=== PATIENT | female | born 1940 | race Caucasian/White ===

== ENCOUNTER 2023-01-06 07:30 | Outpatient (CLI) | payer MEDICARE, BC, SELFPAY | END 2023-01-06 07:31 | disposition home or self-care (01) | LOC: NFLDREF 12:16 | PROVIDERS: PCP Family Medicine; Referring Provider Family Medicine; Visit Provider Family Medicine | DX: I10 Essential (primary) hypertension (principal); E78.5 Hyperlipidemia, unspecified; E55.9 Vitamin D deficiency, unspecified; E66.9 Obesity, unspecified; Z13.9 Encounter for screening, unspecified | CPT/HCPCS: 80053; 80061; 82306 ==

== ENCOUNTER 2023-02-17 09:08 | Outpatient (CLI) | payer MEDICARE, BC, SELFPAY ==
--- NOTE | 2023-02-17 09:15 | CRLHL7_ITS ---
For Patients: As a result of the Century Cures Act, medical imaging exams and procedure reports are released immediately into your electronic medical record. You may view this report before your referring provider. If you have questions, please contact your health care provider. BILATERAL SCREENING MAMMOGRAM WITH COMPUTER-AIDED DETECTION AND TOMOSYNTHESIS TECHNIQUE: CC and MLO views were obtained. These mammographic images have been obtained using full-field digital technique. These mammographic images were interpreted with the benefit of computer-aided detection. Breast Tomosynthesis was used in this interpretation. COMPARISON FILM: 10/07/21, 09/17/20, 05/29/19. FINDINGS: The breasts are heterogeneously dense, which may obscure small masses IMPRESSION: There is no radiographic evidence for malignancy. ASSESSMENT: BI-RADS Category 1: Negative RECOMMENDATION: Routine screening mammogram in 1 year. A lay language report of this examination will be provided to the patient. Neel Rizvi M.D. Diagnostic Radiologist [email or web address] Transcribed: 3:43 p.[email or web address] hale/Dictated by: Neel Rizvi MD @ 02/17/2023 1:38:00 PM (Electronically Signed)
== END 2023-02-17 09:09 | disposition home or self-care (01) ==
LOC: MAMMO 09:09
PROVIDERS: PCP Family Medicine; Visit Provider Family Medicine
DX: Z12.31 Encounter for screening mammogram for malignant neoplasm of breast (principal); R92.2 Inconclusive mammogram
CPT/HCPCS: 77063; 77067

== ENCOUNTER 2023-04-29 09:16 | Emergency (ER) | payer MEDICARE, BC, SELFPAY ==
[2023-04-29 09:22] VITALS: BP 172/83; PULSE 115; RESP 14; TEMP 36.2; O2SAT 99; BMI 29.4
--- NOTE | 2023-04-29 09:39 | ED.NURSE ---
Dr. Childers notified of symptoms immediately after triage. No further orders received.
[2023-04-29 10:12] VITALS: BP 162/95; PULSE 99; RESP 18; O2SAT 100
--- NOTE | 2023-04-29 10:22 | ED.GENADULT ---
HPI - General Adult General Chief complaint: Unspecified Complaint, Adult Stated complaint: Low BP Time Seen by Provider: 04/29/23 09:58 History of Present Illness HPI narrative: This 83-year-old female comes in with many nonspecific complaints and states that she just feels off. 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 She states that this may be from anxiety. She normally takes blood pressure medicines but states that her blood pressure was low this morning when checked at home. She reports a reading of 105 for systolic value. She states is normally in the 120s. She did not take her blood pressure medicine this morning and arrives here with elevated blood pressure at around 160-170. She states that she feels shaky sometimes and has had some heartburn symptoms. She reports some stiffness in her legs and has some jerks that occur mostly at night which sound like restless leg syndrome. She describes some vision changes which she has had checked out by her eye doctor. She does not report any fever, shortness of breath, or pain. She wonders if her ears have accumulation of cerumen and states that she feels some symptoms related to that. Related Data Home Medications Medication Instructions Recorded Confirmed aspirin 81 mg tablet,delayed 81 mg PO QDAY 12/04/22 04/29/23 release (Adult Aspirin Regimen) latanoprost 0.005 % eye drops 1 drp ophthalmic (eye) HS 12/04/22 04/29/23 Previous Rx's Medication Instructions Recorded atorvastatin 20 mg tablet 20 mg PO DAILY #90 tabs 01/08/23 losartan 50 mg tablet 50 mg PO DAILY #90 tabs 01/08/23 Allergies Allergy/AdvReac Type Severity Reaction Status Date / Time amlodipine Allergy Severe rash and Verified 01/08/23 09:27 flushing Sulfa (Sulfonamide Allergy Verified 01/08/23 09:27 Antibiotics) Review of Systems Status of ROS: Reports: 10 or more systems reviewed and unremarkable except as noted in History and below Narrative: Constitutional: No fevers, no weight gain or loss. Eyes: No discharge. HENT: No congestion, no sore throat, no ear pain. Cardiovascular: No chest pain, no palpitations. Respiratory: No shortness of breath, no wheezes, no cough. Gastrointestinal: No abdominal pain, no vomiting, no diarrhea. Genitourinary: No dysuria, no hematuria. Musculoskeletal: Normal range of motion. Skin: No rashes, no pruritis. Neurological: No dizziness, sensory change, speech change. Endo/Heme/Allergies: No bruising or bleeding. No polydipsia. Pysch: no suicidality . She does report some anxiety symptoms and repeatedly states that her unexpectedly several months ago. All other systems reviewed and are negative. 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 with pain (2018) ?I83.819 - Varicose veins of unspecified lower extremity with pain (ICD-10) Cardiac function test performed (07/2019) Obesity (BMI 30.0-34.9) ?E66.9 - Obesity, unspecified (ICD-10) Vitamin D deficiency ?E55.9 - Vitamin D deficiency, unspecified (ICD-10) Dyslipidemia ?E78.5 - Hyperlipidemia, unspecified (ICD-10) Rosacea (04/24/09) ?L71.9 - Rosacea, unspecified (ICD-10) History of migraine headaches ?Z86.69 - Personal history of other diseases of the nervous system and sense organs (ICD-10) Surgical History (Updated 01/07/23 @ 16:08 by Asa Kwon) History of third molar tooth extraction (1959) ?K08.409 - Partial loss of teeth, unspecified cause, unspecified class (ICD-10) Family History (Updated 01/08/23 @ 06:55 by Kelly Pena MD) Brother Hx of CABG, Onset Age: 65 Paternal Grandmother Diabetes Family/Other Diabetes Multiple sclerosis Mother Stroke Melanoma Brother Hx of CABG, Onset Age: 65 Social History (Updated 01/08/23 @ 13:14 by Amber Montes ~ [facility]) Narrative: , retired teacher, 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 nonsmoker rarely consumes alcohol What is your current living situation?: I presently have a place to live Problems where you live: mold Problems where you live details: plants/paulson In the past 12 months, utilities in danger of being shut off: no In past 12 months, lack of transportation kept you from medical appts, meetings, work, or getting things needed for daily living: no In the past 12 mos, have been you worried that your food would run out before you had money to buy more?: never true In the past 12 mos, the food you bought just didn't last and you didn't have money to buy more?: never true Smoking Status: Never smoker Non-prescribed substance use: denies use How often does anyone, including family, friends and others, physically hurt you: never How often does anyone, including family, friends and others, insult or talk down to you: never How often does anyone, including family, friends and others, threaten you with harm: never How often does anyone, including family, friends and others, scream or curse at you: never Little interest or pleasure in doing things: not at all Feeling down, depressed, or hopeless: not at all Exam Narrative: Exam Narrative: Constitutional: Well-developed, well-nourished, no acute distress. HEENT: Normocephalic, atraumatic. Tympanic membranes are not visualized bilaterally due to accumulation of cerumen. Neck: Normal range of motion. Nontender. Supple. Heart: Regular. No murmurs. Normal rate. Intact distal pulses. Lungs: Clear to auscultation. No chest discomfort. No wheezes, rhonchi, or rales. Abdomen: Normal bowel sounds. Nontender. No rebound tenderness. Genitalia: Deferred. Back: No midline tenderness. Normal range of motion. Extremities: Normal range of motion. No injury. Skin: Intact. No rash. Warm. No erythema or pallor. Neurologic: No altered sensation. No weakness. Alert and oriented. Psychiatric: No suicidality. No anxiety or depression. No insomnia. Nursing notes and vitals signs are reviewed. Const: Vital Signs, click to edit/add: Vital Signs - 24 hr 04/29/23 09:22 04/29/23 10:12 Temperature 97.1 F L Pulse Rate 99 Pulse Rate [Pulse Oximeter] 115 H Respiratory Rate 14 18 Blood Pressure 162/95 H Blood Pressure [Ri ght Upper Arm] 172/83 H Pulse Oximetry 99 100 Oxygen Delivery Me thod Room Air Course Vital Signs Vital signs: Initial Vital Signs Temperature 97.1 F L 04/29/23 09:22 Temperature Source Temporal Artery Scan 04/29/23 09:22 Pulse Rate 115 H 04/29/23 09:22 Pulse Rhythm Regular 04/29/23 09:22 Respiratory Rate 14 04/29/23 09:22 Blood Pressure 172/83 H 04/29/23 09:22 Blood Pressure Mean 112 H 04/29/23 09:22 Blood Pressure Position Sitting 04/29/23 09:22 Pulse Oximetry 99 04/29/23 09:22 Oxygen Delivery Method Room Air 04/29/23 09:22 Vital Signs Temperature 97.1 F L 04/29/23 09:22 Pulse Rate 115 H 04/29/23 09:22 Respiratory Rate 14 04/29/23 09:22 Blood Pressure 172/83 H 04/29/23 09:22 Pulse Oximetry 99 04/29/23 09:22 Oxygen Delivery Method Room Air 04/29/23 09:22 Temperature 97.1 F L 04/29/23 09:22 Pulse Rate 99 04/29/23 10:12 Respiratory Rate 18 04/29/23 10:12 Blood Pressure 162/95 H 04/29/23 10:12 Pulse Oximetry 100 04/29/23 10:12 Oxygen Delivery Method Room Air 04/29/23 09:22 Medical Decision Making MDM Narrative Medical decision making narrative: This patient arrives with several diffuse and nonspecific complaints. She did measure her blood pressure this morning with a systolic value of 104. She did not take her blood pressure medicine today because of this. She arrives here with blood pressure a bit elevated at around 160-170. I did check labs and these returned with reassuring results. She is not showing any sign of infection or electrolyte abnormality. The patient states that she has an appointment scheduled with her primary physician. I recommended that she keep this appointment as these matters of blood pressure and her other symptoms are best managed there. The patient is not showing any sign of findings that indicate a need for intervention medically at this time here. Lab Data Labs: Lab Results 04/29/23 Range/Units 10:30 WBC 5.64 (4.50-11.00) K/uL RBC 4.75 (4.00-5.20) m/uL Hgb 13.8 (12.0-16.0) gm/dL Hct 43.8 (33.0-51.0) % MCV 92 (80-100) fL MCH 29 (26-34) pg MCHC 32 (32-36) gm/dL RDW Coeff of Nadir 13.5 (11.5-15.5) % Plt Count 204 (140-440) K/uL Neut % (Auto) 66.3 (42.0-72.0) % Lymph % (Auto) 23.2 (20-44) % [place] % (Auto) 8.0 (0.0-11.0) % Eos % (Auto) 1.8 (0.0-7.0) % Baso % (Auto) 0.5 (0.0-3.0) % Neut # (Auto) 3.74 (1.7-7.0) K/uL Lymph # (Auto) 1.31 (0.90-2.90) K/uL [place] # (Auto) 0.50 (0.00-0.90) K/UL Eos # (Auto) 0.10 (0.00-0.50) K/uL Baso # (Auto) 0.03 (0.00-0.30) K/uL Abs Immat Gran (auto) 0.01 (0.00-0.30) K/uL Imm/Tot Granulo (auto) 0.2 % Sodium 140 (135-149) mmol/L Potassium 4.9 (3.6-5.1) mmol/L Chloride 101 (96-114) mmol/L Carbon Dioxide 27 (20-32) mmol/L Anion Gap 12 (7-15) mEq/L BUN 41 H (7-30) mg/dL Creatinine 1.1 (0.5-1.5) mg/dL Estimated Creat Clear 32.88 Estimated GFR 50 ml/min Glucose 93 (60-115) mg/dL Calcium 9.1 (8.4-10.6) mg/dL Discharge Plan Discharge Clinical Impression: Feared condition not demonstrated Patient Disposition: Home, Self-Care Condition: Stable Additional Instructions: Recheck blood pressures regularly and follow up with primary physician for ongoing management. If blood pressures are normal or low it is okay to hold blood pressure medicines. Return if worsening. Prescriptions: No Action latanoprost 0.005 % drops 1 drp ophthalmic (eye) HS aspirin [Adult Aspirin Regimen] 81 mg tablet,delayed release (DR/EC) 81 mg PO QDAY atorvastatin 20 mg tablet 20 mg PO DAILY Qty: 90 4RF losartan 50 mg tablet 50 mg PO DAILY Qty: 90 4RF Follow Up/Referrals: Kelly Pena MD [Primary Care Provider] - Stand Alone Forms: [employer] Info Instructions
[2023-04-29 10:40] LABS: Basophils Absolute Auto 0.03 K/uL (0.00-0.30); Basophils Percent Auto 0.5 % (0.0-3.0); Eosinophils Percent Auto 1.8 % (0.0-7.0); Hematocrit 43.8 % (33.0-51.0); Hemoglobin* 13.8 gm/dL (12.0-16.0); Immature Granulocytes Abs Auto 0.01 K/uL (0.00-0.30); Immature Granulocytes Pct Auto 0.2 %; Lymphocytes Absolute Auto 1.31 K/uL (0.90-2.90); Lymphocytes Percent Auto 23.2 % (20-44); Mean Corpuscular HGB Conc 32 gm/dL (32-36); Mean Corpuscular Hemoglobin 29 pg (26-34); Mean Corpuscular Volume 92 fL (80-100); Neutrophils Absolute Auto 3.74 K/uL (1.7-7.0); Neutrophils Percent Auto 66.3 % (42.0-72.0); Platelet Count* 204 K/uL (140-440); RDW Coefficient of Variation % 13.5 % (11.5-15.5); Red Blood Count 4.75 m/uL (4.00-5.20); White Blood Count* 5.64 K/uL (4.50-11.00)
[2023-04-29 10:44] LABS: Slide Review Reflex No
[2023-04-29 10:49] LABS: Chloride* 101 mmol/L (96-114); Sodium* 140 mmol/L (135-149)
[2023-04-29 10:50] LABS: Potassium* 4.9 mmol/L (3.6-5.1)
[2023-04-29 10:52] LABS: Creatinine* 1.1 mg/dL (0.5-1.5); Est. Creatinine Clearance* 32.88; Estimated Glomerular Filt Rate 50 ml/min
[2023-04-29 10:53] LABS: Anion Gap 12 mEq/L (7-15); Blood Urea Nitrogen* 41 mg/dL (7-30); Calcium* 9.1 mg/dL (8.4-10.6); Carbon Dioxide* 27 mmol/L (20-32); Glucose* 93 mg/dL (60-115)
[2023-04-29 12:39] VITALS: BP 152/78; PULSE 97; RESP 18; TEMP 36.2
== END 2023-04-29 12:40 | disposition home or self-care (01) ==
PROVIDERS: Emergency Provider Emergency Medicine Emergency Medical Services; PCP Family Medicine
DX: Z71.1 Person with feared health complaint in whom no diagnosis is made (principal)
CPT/HCPCS: 36415; 80048; 85025; 99283; 99284

== ENCOUNTER 2023-05-01 09:46 | Outpatient (CLI) | payer MEDICARE, BC, SELFPAY | END 2023-05-01 09:47 | disposition home or self-care (01) | LOC: AMB 05-04 11:33 | PROVIDERS: PCP Family Medicine; Visit Provider Emergency Medicine Emergency Medical Services | DX: I49.9 Cardiac arrhythmia, unspecified (principal); R42 Dizziness and giddiness | CPT/HCPCS: A0425; A0427 ==

== ENCOUNTER 2023-05-01 10:00 | Emergency (ER) | payer MEDICARE, BC, SELFPAY ==
[2023-05-01] VITALS (20 sets, daily range): BP systolic 140–186; BP diastolic 72–115; PULSE 75–101; RESP 18; TEMP 37.1; O2SAT 96–100; BMI 29.2
[2023-05-01] MEDS: METOPROLOL TARTRATE 25 MG TABLET PO (10:51)
--- NOTE | 2023-05-01 10:51 | ED_ITS ---
HPI - General Adult General Chief complaint: Dizziness/Vertigo Stated complaint: Heart racing Time Seen by Provider: 05/01/23 10:15 History of Present Illness HPI narrative: This patient comes in to the emergency department reporting feeling that her heart is going fast sometimes and some episodes of lightheadedness. 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 She does desc ribe some anxiety symptoms with the increased stress of these changes in her life. She does have some memory issues. She was seen by me a couple days ago and had an evaluation regarding similar circumstances. At that time her labs were reassuring. She was concerned that her blood pressure was too low from a reading that she did at home. Her blood pressure at a previous visit was around 160-170 and this is similar to what she arrives with today. She states that she did take her losartan medicine this morning. She is not on any rate controlling medications. She does not report any chest pain or shortness of breath. She does not have nausea or vomiting. Related Data Home Medications Medication Instructions Recorded Confirmed aspirin 81 mg tablet,delayed 81 mg PO QDAY 12/04/22 04/29/23 release (Adult Aspirin Regimen) latanoprost 0.005 % eye drops 1 drp ophthalmic (eye) HS 12/04/22 04/29/23 Previous Rx's Medication Instructions Recorded atorvastatin 20 mg tablet 20 mg PO DAILY #90 tabs 01/08/23 losartan 50 mg tablet 50 mg PO DAILY #90 tabs 01/08/23 metoprolol succinate 25 mg capsule 25 mg PO DAILY #30 ea 05/01/23 sprinkle, ext. release 24 hr Allergies Allergy/AdvReac Type Severity Reaction Status Date / Time amlodipine Allergy Severe rash and Verified 01/08/23 09:27 flushing Sulfa (Sulfonamide Allergy Verified 01/08/23 09:27 Antibiotics) Review of Systems Status of ROS: Reports: 10 or more systems reviewed and unremarkable except as noted in History and below Narrative: Constitutional: No fevers, no weight gain or loss. Eyes: No discharge. No vision changes. HENT: No congestion, no sore throat, no ear pain. Cardiovascular: No chest pain, no palpitations. She feels that her heart is going fast at times. Respiratory: No shortness of breath, no wheezes, no cough. Gastrointestinal: No abdominal pain, no vomiting, no diarrhea. Genitourinary: No dysuria, no hematuria. Musculoskeletal: Normal range of motion. Skin: No rashes, no pruritis. Neurological: No dizziness, weakness, sensory change, speech change. Endo/Heme/Allergies: No bruising or bleeding. No polydipsia. Pysch: no suicidality, no anxiety, no insomnia. All other systems reviewed and are negative. 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 (2018) ?I83.819 - Varicose veins of unspecified lower extremity with pain (ICD-10) Cardiac function test performed (07/2019) Obesity (BMI 30.0-34.9) ?E66.9 - Obesity, unspecified (ICD-10) Vitamin D deficiency ?E55.9 - Vitamin D deficiency, unspecified (ICD-10) Dyslipidemia ?E78.5 - Hyperlipidemia, unspecified (ICD-10) Rosacea (04/24/09) ?L71.9 - Rosacea, unspecified (ICD-10) History of migraine headaches ?Z86.69 - Personal history of other diseases of the nervous system and sense organs (ICD-10) Surgical History (Updated 01/07/23 @ 16:08 by Asa Kwon) History of third molar tooth extraction (1959) ?K08.409 - Partial loss of teeth, unspecified cause, unspecified class (ICD- 10) Family History (Updated 01/08/23 @ 06:55 by Kelly Pena MD) Brother Hx of CABG, Onset Age: 65 Paternal Grandmother Diabetes Family/Other Diabetes Multiple sclerosis Mother Stroke Melanoma Brother Hx of CABG, Onset Age: 65 Social History (Updated 01/08/23 @ 13:14 by Amber Montes ~ [facility]) Narrative: , retired teacher, 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 nonsmoker rarely consumes alcohol What is your current living situation?: I presently have a place to live Problems where you live: mold Problems where you live details: plants/paulson In the past 12 months, utilities in danger of being shut off: no In past 12 months, lack of transportation kept you from medical appts, meetings, work, or getting things needed for daily living: no In the past 12 mos, have been you worried that your food would run out before you had money to buy more?: never true In the past 12 mos, the food you bought just didn't last and you didn't have money to buy more?: never true Smoking Status: Never smoker Do you use any of these nicotine containing products: None Second hand tobacco smoke exposure: No How often do you have a drink containing alcohol: never AUDIT-C Alcohol total score: 0 Non-prescribed substance use: denies use How often does anyone, including family, friends and others, physically hurt you : never How often does anyone, including family, friends and others, insult or talk down to you: never How often does anyone, including family, friends and others, threaten you with harm: never How often does anyone, including family, friends and others, scream or curse at you: never Little interest or pleasure in doing things: not at all Feeling down, depressed, or hopeless: not at all service: No Exam Narrative: Exam Narrative: Constitutional: Well-developed, well-nourished, no acute distress. HEENT: Normocephalic, atraumatic. Neck: Normal range of motion. Nontender. Supple. Heart: Regular. No murmurs. Normal rate. Borderline tachycardia. Intact distal pulses. Lungs: Clear to auscultation. No chest discomfort. No wheezes, rhonchi, or rales. Abdomen: Normal bowel sounds. Nontender. No rebound tenderness. Genitalia: Deferred. Back: No midline tenderness. Normal range of motion. Extremities: Normal range of motion. No injury. Skin: Intact. No rash. Warm. No erythema or pallor. Neurologic: No altered sensation. No weakness. Alert and oriented. Psychiatric: No suicidality. No anxiety or depression. No insomnia. Nursing notes and vitals signs are reviewed. Const: Vital Signs, click to edit/add: Vital Signs - 24 hr 05/01/23 10:10 05/01/23 10:13 05/01/23 10:14 Temperature 98.7 F Pulse Rate 95 93 Pulse Rate [Right Pulse Oximeter] 101 H Respiratory Rate 18 Blood Pressure 181/91 H Blood Pressure [Ri ght Upper Arm] 186/98 H Pulse Oximetry 100 98 100 Oxygen Delivery Me thod Room Air 05/01/23 10:17 05/01/23 10:22 05/01/23 10:26 Temperature Pulse Rate 94 93 96 Pulse Rate [Right Pulse Oximeter] Respiratory Rate Blood Pressure 167/87 H 168/87 H 167/88 H Blood Pressure [Ri ght Upper Arm] Pulse Oximetry 99 99 99 Oxygen Delivery Me thod 05/01/23 10:30 05/01/23 10:32 05/01/23 10:37 Temperature Pulse Rate 93 88 92 Pulse Rate [Right Pulse Oximeter] Respiratory Rate Blood Pressure 166/86 H 166/84 H Blood Pressure [Ri ght Upper Arm] Pulse Oximetry 100 100 99 Oxygen Delivery Me thod 05/01/23 10:42 05/01/23 10:47 05/01/23 10:52 Temperature Pulse Rate 92 85 86 Pulse Rate [Right Pulse Oximeter] Respiratory Rate Blood Pressure 157/115 H 169/85 H 146/81 H Blood Pressure [Ri ght Upper Arm] Pulse Oximetry 97 99 99 Oxygen Delivery Me thod 05/01/23 10:58 05/01/23 11:00 05/01/23 11:02 Temperature Pulse Rate 83 78 83 Pulse Rate [Right Pulse Oximeter] Respiratory Rate Blood Pressure 158/79 H 156/93 H Blood Pressure [Ri ght Upper Arm] Pulse Oximetry 98 98 96 Oxygen Delivery Me thod 05/01/23 11:07 05/01/23 11:12 05/01/23 11:17 Temperature Pulse Rate 79 78 Pulse Rate [Right Pulse Oximeter] Respiratory Rate Blood Pressure 155/81 H 147/76 H 154/72 H Blood Pressure [Ri ght Upper Arm] Pulse Oximetry 97 97 Oxygen Delivery Me thod 05/01/23 11:22 05/01/23 11:31 Temperature Pulse Rate 75 79 Pulse Rate [Right Pulse Oximeter] Respiratory Rate Blood Pressure 140/72 H Blood Pressure [Ri ght Upper Arm] Pulse Oximetry 99 99 Oxygen Delivery Me thod Course Vital Signs Vital signs: Initial Vital Signs Temperature 98.7 F 05/01/23 10:10 Temperature Source Temporal Artery Scan 05/01/23 10:10 Pulse Rate 101 H 05/01/23 10:10 Respiratory Rate 18 05/01/23 10:10 Blood Pressure 186/98 H 05/01/23 10:10 Blood Pressure Mean 127 H 05/01/23 10:10 Blood Pressure Position Sitting 05/01/23 10:10 Pulse Oximetry 100 05/01/23 10:10 Oxygen Delivery Method Room Air 05/01/23 10:10 Vital Signs Temperature 98.7 F 05/01/23 10:10 Pulse Rate 101 H 05/01/23 10:10 Respiratory Rate 18 05/01/23 10:10 Blood Pressure 186/98 H 05/01/23 10:10 Pulse Oximetry 100 05/01/23 10:10 Oxygen Delivery Method Room Air 05/01/23 10:10 Temperature 98.7 F 05/01/23 10:10 Pulse Rate 79 05/01/23 11:31 Respiratory Rate 18 05/01/23 10:10 Blood Pressure 140/72 H 05/01/23 11:22 Pulse Oximetry 99 05/01/23 11:31 Oxygen Delivery Method Room Air 05/01/23 10:10 Medical Decision Making MDM Narrative Medical decision making narrative: This patient arrives with feeling of episodes of lightheadedness and thinks that her heart is been going too fast at times. She does take losartan but is not on any rate controlling medications. She does not have a history of atrial fibrillation and EKG done here shows normal sinus rhythm with a heart rate right at the upper border of normal at 100 beats per minute. She was seen by me a couple days ago at which time labs are acquired and these returned with normal findings. The patient does not report any chest pain. Currently she feels rather normal. She does have somewhat elevated blood pressure and heart rate so I did give her metoprolol tartrate 25 mg. She had her blood pressure then reduced to 140 and heart rate to 73. She was up to the bathroom and states that she feels well. I did prescribe metoprolol succinate 25 mg to be taken once a day. The patient has a follow-up appointment with her primary physician in 5 days at which time these medications can be reviewed. ECG Data Attestation: I personally reviewed and interpreted this ECG as follows: Interpretation: Normal sinus rhythm. Rate is 99 beats per minute. There are no specific ST or T-wave abnormalities. Discharge Plan Discharge Clinical Impression: Hypertension Patient Disposition: Home, Self-Care Condition: Stable Additional Instructions: Continue current medications and take metoprolol as prescribed. Record blood pressures at home if possible and follow up with primary physician as scheduled to review medications. Prescriptions: New metoprolol succinate 25 mg capsule,sprinkle,ER 24hr 25 mg PO DAILY Qty: 30 2RF No Action latanoprost 0.005 % drops 1 drp ophthalmic (eye) HS aspirin [Adult Aspirin Regimen] 81 mg tablet,delayed release (DR/EC) 81 mg PO QDAY atorvastatin 20 mg tablet 20 mg PO DAILY Qty: 90 4RF losartan 50 mg tablet 50 mg PO DAILY Qty: 90 4RF Follow Up/Referrals: Kelly Pena MD [Primary Care Provider] - Stand Alone Forms: [employer] Info Instructions
== END 2023-05-01 12:01 | disposition home or self-care (01) ==
PROVIDERS: Emergency Provider Emergency Medicine Emergency Medical Services; PCP Family Medicine
DX: I10 Essential (primary) hypertension (principal)
CPT/HCPCS: 93005; 99284; A9270

== ENCOUNTER 2023-10-20 10:09 | Outpatient (CLI) | payer MEDICARE, BC, SELFPAY | END 2023-10-20 10:10 | disposition home or self-care (01) | LOC: NFLDREF 10:11 | PROVIDERS: PCP Family Medicine; Visit Provider Family Medicine | DX: I10 Essential (primary) hypertension (principal) | CPT/HCPCS: 80048 ==

== ENCOUNTER 2023-10-23 05:52 | Outpatient (CLI) | payer MEDICARE, BC, SELFPAY ==
--- OUTSIDE RECORDS SUMMARY | 2023-10-28 05:58 | XMS_ITS | Continuity of Care Document ---
Author Name Unknown Organization [facility] Address [address] [address] [place] [address] Phone Care Team Providers Care Instructional Interventionist Name Role Phone Eliza MORRISON, Radha Unavailable Unavailable Allergies, Adverse Reactions, Alerts Substance Reaction Status Criticality Sulfa (Sulfonamide Antibiotics) Hives Active No Information Medications Medication Instructions Dosage Effective Dates (start - stop) Status Comments Nasonex 50 mcg/Actuation [place] Use as directed - Active Prilosec unknown [...] Diagnoses Date Provider Providers Copied on Encounter [facility], [address] [address], [place], [place], [id number], [place] tel:[phone] [facility] Eliza Garcia. [address], [place], [place], [id number], [place]. tel:[phone] Referring Provider: [place], [address] [place], [address]. tel:[phone] Offic Cons New/estab Mod- [facility], [address] [address], [place], [place], [id number], [place] tel:[phone] [facility]ysph[facility]ia Eliza Garcia. [address], [place], [place], [id number], [place]. tel:[phone] Referring Provider: [place], [address] [place], [address]. tel:[phone] Family History Family Member Type Diagnosis Age At Onset No Information Payers Payer name Insurance type Covered libertarian ID Authoriza tion(s) Medicare NGS MB [id number] Social History Type Description Quantity Date Captured [...]
--- OUTSIDE RECORDS SUMMARY | 2023-10-28 05:58 | XMS_ITS | Clinical Summary ---
Author Name Unknown Organization [facility] Address [place], [place] [address] Care Team Providers Care Manager Employment Name Role Phone Pcp, No Primary Care [...] with a meal. 0 12/01/2021 Active vit C,O-Op-rbhrm-lutein- zeaxan (PreserVision AREDS-2) capsule 2 capsules per day 0 12/01/2021 Active loratadine (CLARITIN) 10 mg tabletIndications:En vironmental allergies Take 1 Tablet (10 mg) by mouth once daily. As needed for allergies 30 Tablet 5 12/01/2021 Active Active Problems Problem Noted Date Diagnosed Date GERD (gastroesophageal reflux disease) 9 Recurrent UTI 05/24/2009 Immunizations Name Administration Dates Next Due COVID-19 vaccine (Artklikk NTech 30mcg/0.3mL) 12YO+ BIVALENT PF, MDV 04/13/2022 COVID-19 vaccine (Artklikk NTech 30mcg/0.3mL) 12YO+ CATHERINE-SUCROSE PF, MDV 10/22/2021 [...] 50+ Completed 01/28/2019, 09/05/2018, 05/31/2013 Care Teams Manager Employment Relationship Specialty Start Date End Date Pcp, No . PCP - General 08/09/13
== END 2023-10-23 05:53 | disposition home or self-care (01) ==
LOC: AMB 10-28 05:57
PROVIDERS: PCP Family Medicine; Visit Provider Internal Medicine
DX: R04.0 Epistaxis (principal)
CPT/HCPCS: A0425; A0429

== ENCOUNTER 2023-10-23 06:12 | Emergency (ER) | payer MEDICARE, BC, SELFPAY ==
[2023-10-23 06:16] VITALS: BP 151/71; PULSE 86; TEMP 36.5; O2SAT 98; BMI 20.1
--- NOTE | 2023-10-23 06:21 | ED_ITS ---
History of Present Illness General Chief Complaint: Epistaxis/Nosebleed Stated Complaint: nose bleed Time Seen by Provider: 10/23/23 06:21 History of Present Illness HPI Narrative: Patient is 83-year-old woman who takes baby aspirin daily who woke up this morning with bleeding from the left nostril. The bleeding was easily controlled at home but she called for an ambulance and is brought to the emergency room. She is hemodynamically stable and there is no further bleeding. She has had no chest pain no shortness of breath orthopnea no PND no focal neurologic defects. She has felt recently very congested. Again she has no history of significant epistaxis and she has no further bleeding tonight. Related Data Home Medications Medication Instructions Recorded Confirmed aspirin 81 mg tablet,delayed 81 mg PO QDAY 12/04/22 10/23/23 release (Adult Aspirin Regimen) latanoprost 0.005 % eye drops 1 drp ophthalmic (eye) HS 12/04/22 10/23/23 ascorbate calcium (vitamin C) 500 500 mg PO QDAY 09/13/23 10/23/23 mg tablet cholecalciferol (vitamin D3) 25 25 mcg PO DAILY 09/13/23 10/23/23 mcg (1,000 unit) tablet folic acid 1 mg tablet 1 mg PO DAILY 09/13/23 10/23/23 vit C 250 mg-vit E 90 mg-zinc 40 1 tab PO BID 09/20/23 10/23/23 mg-copper 1 [id number] capsule (PreserVision AREDS-2) Previous Rx's Medication Instructions Recorded atorvastatin 20 mg tablet 20 mg PO DAILY #90 tabs 01/08/23 metoprolol succinate 25 mg 25 mg PO QDAY #90 tabs 06/10/23 tablet,extended release 24 hr losartan 100 mg tablet 100 mg PO DAILY #90 tabs 09/20/23 losartan 50 mg tablet 50 mg PO BID #180 tabs 10/20/23 Allergies Allergy/AdvReac Type Severity Reaction Status Date / Time amlodipine Allergy Severe rash and Verified 10/23/23 06:16 flushing Sulfa (Sulfonamide Allergy Verified 10/23/23 06:16 Antibiotics) Review of Systems Status of ROS: Reports: 10 or more systems reviewed and unremarkable except as noted in History and below [facility] Medical History History of bone density study (2019) ?Z92.89 - Personal history of other medical treatment (ICD-10) 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, unspecified (ICD-10) Varicose veins with pain (2019) ?I83.819 - Varicose veins of unspecified lower extremity with pain (ICD-10) Cardiac function test performed (07/2019) Obesity (BMI 30.0-34.9) ?E66.9 - Obesity, unspecified (ICD-10) Vitamin D deficiency ?E55.9 - Vitamin D deficiency, unspecified (ICD-10) Dyslipidemia ?E78.5 - Hyperlipidemia, unspecified (ICD-10) Rosacea (04/24/09) ?L71.9 - Rosacea, unspecified (ICD-10) History of migraine headaches ?Z86.69 - Personal history of other diseases of the nervous system and sense organs (ICD-10) Surgical History History of third molar tooth extraction (1959) ?K08.409 - Partial loss of teeth, unspecified cause, unspecified class (ICD- 10) Family History Brother Hx of CABG, Onset Age: 65 Paternal Grandmother Diabetes Family/Other Diabetes Multiple sclerosis Mother Stroke Melanoma Brother Hx of CABG, Onset Age: 65 Social History Narrative: , retired teacher, 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 nonsmoker rarely consumes alcohol What is your current living situation?: I presently have a place to live Problems where you live: mold Problems where you live details: plants/paulson In the past 12 months, utilities in danger of being shut off: no In past 12 months, lack of transportation kept you from medical appts, meetings, work, or getting things needed for daily living: no In the past 12 mos, have been you worried that your food would run out before you had money to buy more?: never true In the past 12 mos, the food you bought just didn't last and you didn't have money to buy more?: never true Smoking Status: Never smoker Do you use any of these nicotine containing products: None Second hand tobacco smoke exposure: No How often do you have a drink containing alcohol: never AUDIT-C Alcohol total score: 0 Non-prescribed substance use: denies use How often does anyone, including family, friends and others, physically hurt you : never How often does anyone, including family, friends and others, insult or talk down to you: never How often does anyone, including family, friends and others, threaten you with harm: never How often does anyone, including family, friends and others, scream or curse at you: never Little interest or pleasure in doing things: not at all Feeling down, depressed, or hopeless: not at all service: No Exam Narrative: Exam Narrative: EXAM GENERAL: Patient appears comfortable and well. EYES: No scleral icterus. ENT: Tympanic membranes and oropharynx normal. Inspection of the nasal mucosa Bilaterally actually shows fairly healthy tissue with no bleeding. Mild hyperemia noted left nostril. THYROID: no thyroid nodules or thyromegaly. LYMPH: No supraclavicular or cervical lymphadenopathy. SKIN: Visible skin seen during exam normal or with benign process only. EXT: No dependent lower extremity pedal edema. HEART: Regular rate and rhythm with no murmurs, rubs, or gallops. LUNGS: Clear to auscultation bilaterally with no crackles or wheezes. ABD: Soft, non tender, non distended. PSYCH: Good eye contact, speech is not pressured. Const: Vital Signs, click to edit/add: Vital Signs - 24 hr 10/23/23 06:16 Temperature 97.7 F Pulse Rate [Left P ulse Oximeter] 86 Blood Pressure [Ri ght Upper Arm] 151/71 H Pulse Oximetry 98 Oxygen Delivery Me thod Room Air Course Course ED Course: Patient seen and examined. Vital Signs Vital signs: Initial Vital Signs Temperature 97.7 F 10/23/23 06:16 Temperature Source Temporal Artery Scan 10/23/23 06:16 Pulse Rate 86 10/23/23 06:16 Pulse Rhythm Regular 10/23/23 06:16 Pulse Strength 3+ Normal 10/23/23 06:16 Blood Pressure 151/71 H 10/23/23 06:16 Blood Pressure Mean 97 10/23/23 06:16 Blood Pressure Position Sitting 10/23/23 06:16 Pulse Oximetry 98 10/23/23 06:16 Oxygen Delivery Method Room Air 10/23/23 06:16 Vital Signs Temperature 97.7 F 10/23/23 06:16 Pulse Rate 86 10/23/23 06:16 Blood Pressure 151/71 H 10/23/23 06:16 Pulse Oximetry 98 10/23/23 06:16 Oxygen Delivery Method Room Air 10/23/23 06:16 Temperature 97.7 F 10/23/23 06:16 Pulse Rate 86 10/23/23 06:16 Blood Pressure 151/71 H 10/23/23 06:16 Pulse Oximetry 98 10/23/23 06:16 Oxygen Delivery Method Room Air 10/23/23 06:16 MDM - Epistaxis MDM Narrative Medical decision making narrative: Patient is an 83-year-old woman who woke up with mild epistaxis left nostril. The bleeding has stopped. On my inspection I do not see significant pathology other than mild hyperemia of the left nostril. She is hemodynamically stable and has normal vital signs and on otherwise normal exam. This time I did discontinue her baby aspirin and recommended Flonase 1 spray each nostril daily. I recommended primary care follow-up. Differential diagnosis includes but not limited to bleeding diatheses is seasonal allergies sinusitis nasal polyps Discharge Plan Discharge Clinical Impression: Epistaxis Patient Disposition: Home, Self-Care Condition: Stable Instructions: Nosebleed (ED) Additional Instructions: Hold aspirin Begin Flonase 1 spray each nostril daily [id number] Follow-up with your doctor this coming week. Activity Level: No Restrictions Discharge Diet: Regular Prescriptions: No Action latanoprost 0.005 % drops 1 drp ophthalmic (eye) HS aspirin [Adult Aspirin Regimen] 81 mg tablet,delayed release (DR/EC) 81 mg PO QDAY atorvastatin 20 mg tablet 20 mg PO DAILY Qty: 90 4RF ascorbate calcium (vitamin C) 500 mg tablet 500 mg PO QDAY folic acid 1 mg tablet 1 mg PO DAILY cholecalciferol (vitamin D3) 25 mcg (1,000 unit) tablet 25 mcg PO DAILY PreserVision AREDS-2 250-90-40-1 mg capsule 1 tab PO BID losartan 100 mg tablet 100 mg PO DAILY Qty: 90 0RF losartan 50 mg tablet 50 mg PO BID Qty: 180 0RF Rx Instructions: 1 tab po bid for HTN metoprolol succinate 25 mg tablet extended release 24 hr 25 mg PO QDAY Qty: 90 3RF Follow Up/Referrals: Kelly Pena MD [Primary Care Provider] - Stand Alone Forms: [employer] Info Instructions
--- OUTSIDE RECORDS SUMMARY | 2023-10-23 06:31 | XMS_ITS | Clinical Summary ---
Author Name Unknown Organization [email or web address] Address [place], [place] [address] Care Team Providers Care Commercial Construction Project Manager Name Role Phone Pcp, No Primary Care Provider Unavailabl e Allergies Active Allergy Reactions Criticality Noted Date Comments Cephalexin 05/24/2009 Gets diarrhea Sulfa (Sulfonamide Antibiotics) 05/12 Medications Medication Sig Dispensed Refills Start Date End Date Status VITAMIN D 1,000 UNIT CAP 0 05/24/2009 Active VITAMIN B-12 1,000 MCG/ML INJECTION 1 0 05/24/2009 Active latanoprost (XALATAN) 0.005 % ophthalmic solution 10/15/2021 Activ e losartan (COZAAR) 50 mg tablet 09/22/2021 Active atorvastatin (LIPITOR) 20 mg tablet 09/10/2021 Active aspirin (ECOTRIN) 81 mg enteric coated tablet Take 1 Tablet (81 mg) by mouth once daily with a meal. 0 12/01/2021 Active vit C,S-Dk-ajefx-lutein- zeaxan (PreserVision AREDS-2) capsule 2 capsules per day 0 12/01/2021 Active loratadine (CLARITIN) 10 mg tabletIndications:En vironmental allergies Take 1 Tablet (10 mg) by mouth once daily. As needed for allergies 30 Tablet 5 12/01/2021 Active Active Problems Problem Noted Date Diagnosed Date GERD (gastroesophageal reflux disease) 9 Recurrent UTI 05/24/2009 Immunizations Name Administration Dates Next Due COVID-19 vaccine (Corvil NTech 30mcg/0.3mL) 12YO+ BIVALENT PF, MDV 04/13/2022 COVID-19 vaccine (Corvil NTech 30mcg/0.3mL) 12YO+ CATHERINE-SUCROSE PF, MDV 10/22/2021 Influenza A (H1N1), Inactivated 05/22/2009 Influenza, High-dose Inactivated 019,08/03/2018,05/13/2017,2015,04/17/2015,05/15/2014 Influenza, High-dose Quadriv alent Inactivated 04/01/2020 Influenza, IIV3 (Age 6-35 mos) 3,06/17/2011,06/16/2010,2008 Influenza, IIV3 (Age >=3 years) 05/19/2006 Influenza, IIV4 05/22/2009 Influenza, Inactivated AIIV4 (Age 65+ Years) Preserv Free 04/13/2022,03/27/2021 Pneumococcal Poly,23-Valent (Pneumovax) 05/19/2006 Pneumococcal conj 13-Valent (Prevnar 13) 12/18/2014 Td, Preservative Free (age > = 7 Years) 06/18/1999 Tdap 09/05/2018 Zoster (Shingrix-RZV, recombinant) 01/28/2019, Zoster (Zostavax-ZVL, live) 05/31/2013 Social History Tobacco Use Types Packs/Day Years Used Date Smoking Tobacco: Never Smokeless Tobacco: Never Tobacco Cessation:Counseling Given: Yes Social Connections Answer Date Recorded Frequency of Communication with Friends and Fami ly Not on file 12/01/2021 Sex and Gender Information Value Date Recorded Sex Assigned at Not on file Gender Identity Not on file Sexual Orientation Not on file Obstetrics History Last Filed Vital Signs Vital Sign Reading Time Taken Comments Blood Pressure 154/88 12/01/2021 10:20 AM CDT Pulse 95 12/01/2021 10:20 AM CDT Temperature 36.6 ??C (97.8 ??F) 12/01/2021 10:20 AM C DT Respiratory Rate - - Oxygen Saturation 100% 12/01/2021 10:20 AM CDT Inhaled Oxygen Concentration - - Weight 79.4 kg (175 lb) 12/01/2021 10:20 AM CDT Height 162.6 cm (5' 4) 12/01/2021 10:20 AM CDT Body Mass Index 30.04 12/01/2021 10:20 AM CDT Plan of Treatment Health Maintenance Due Date Last Done Comments Depression screening for age 12+ 1952 DEXA/DXA scan for age 65+ 01/10/2004 Medicare Wellness for age 65+ 01/10/2004 BMI (ht and wt on same day) for age 18+ 12/01/2022 12/01/2021 COVID-19 vaccine series ( season) 2023 04/13/2022, 10/22/2021, 04/10/2021, Additional history exists Influenza for age 65+ 03/12/2024 04/13/2022 , 03/27/2021, 04/01/2020, Additional history exists Tetanus booster 09/05/2028 09/05/2018, 06/18/1999 Pneumococcal series for age 65+ Completed 5, 05/19/2006 Tdap Completed 09/05/2018 Zoster (shingles) series for age 50+ Completed 01/28/2019, 09/05/2018, 05/31/2013 Care Teams Commercial Construction Project Manager Relationship Specialty Start Date End Date Pcp, No . PCP - General 08/09/13
--- OUTSIDE RECORDS SUMMARY | 2023-10-23 06:31 | XMS_ITS | Continuity of Care Document ---
Author Name Unknown Organization [facility] Address [address] [address] [place] [address] Phone Care Team Providers Care Merchant Mariner Name Role Phone Eliza MORRISON, Radha Unavailable Unavailable Allergies, Adverse Reactions, Alerts Substance Reaction Status Criticality Sulfa (Sulfonamide Antibiotics) Hives Active No Information Medications Medication Instructions Dosage Effective Dates (start - stop) Status Comments Nasonex 50 mcg/Actuation [place] Use as directed - Active Prilosec unknown - Active Prilosec 20 mg Cap Take one tab each AM 5 - Active Aspirin Low Dose 81 mg Tab, Delayed Release Take 1 tablet by mouth daily - Active Folic Acid unknown Take one tablet by mouth daily - Active Folic Acid unknown Take one tablet by mouth daily - No Longer Active Procedures Procedure Date Ugi Endo; W/bx 1/mx Offic Cons New/estab Mod- Advance Directives Directive Yes / No Effective Date File Name No Information Encounters Encounter Description Practice Location Reason(s) For Visit Diagnoses Date Provider Providers Copied on Encounter [facility] [address] [address], [place], [place], [id number], [place] tel:[phone] [facility] Eliza Garcia. [address], [place], [place], [id number], [place]. tel:[phone] Referring Provider: [place], [address] [place], [address]. tel:[phone] Offic Cons New/estab Mod- [facility], [address] [address], [place], [place], [id number], [place] tel:[phone] [facility] Eliza Garcia. [address], [place], [place], [id number], [place]. tel:[phone] Referring [place]: [place], [address] [place], [address]. tel:[phone] Family History Family Member Type Diagnosis Age At Onset No Information Payers Payer name Insurance type Covered republican ID Authoriza tion(s) Medicare NGS MB [id number] Social History Type Description Quantity Date Captured Comments Sex Female Smoking Status No Information Chief Complaint And Reason For Visit No Information Reason For Referral Reason For Referral No Information History Of Present Illness Encounter Date Complaint History Of Prese nt Illness No Information Functional Status Date Functional Assessmen t No Information Medications Administered Medication Instructions Dosage Effective Dates (start - stop) Status Comments Folic Acid unknown Take one tablet by mouth daily - No Longer Active Instructions Date Instruction Additional Infor mation No Information Assessments Type Assessment Date No Information Patient Care Teams Name Effective Dates (start - stop) Status Members No Information
== END 2023-10-23 06:51 | disposition home or self-care (01) ==
LOC: ED 06:29
PROVIDERS: Emergency Provider Internal Medicine; PCP Family Medicine
DX: R04.0 Epistaxis (principal)
CPT/HCPCS: 99283

== ENCOUNTER 2023-11-04 08:21 | Outpatient (CLI) | payer MEDICARE, BC, SELFPAY ==
--- OUTSIDE RECORDS SUMMARY | 2023-11-25 11:40 | XMS_ITS | Clinical Summary ---
Author Name Unknown Organization [facility] Address [place], [place] [address] Care Team Providers Care Group Underwriter Name Role Phone Pcp, No Primary Care [...] with a meal. 0 12/01/2021 Active vit C,A-Ga-jnfme-lutein- zeaxan (PreserVision AREDS-2) capsule 2 capsules per day 0 12/01/2021 Active loratadine (CLARITIN) 10 mg tabletIndications:En vironmental allergies Take 1 Tablet (10 mg) by mouth once daily. As needed for allergies 30 Tablet 5 12/01/2021 Active Active Problems Problem Noted Date Diagnosed Date GERD (gastroesophageal reflux disease) 9 Recurrent UTI 05/24/2009 Immunizations Name Administration Dates Next Due COVID-19 vaccine (Barosense NTech 30mcg/0.3mL) 12YO+ BIVALENT PF, MDV 04/13/2022 COVID-19 vaccine (Barosense NTech 30mcg/0.3mL) 12YO+ CATHERINE-SUCROSE PF, MDV 10/22/2021 [...] 50+ Completed 01/28/2019, 09/05/2018, 05/31/2013 Care Teams Group Underwriter Relationship Specialty Start Date End Date Pcp, No . PCP - General 08/09/13
== END 2023-11-04 08:22 | disposition home or self-care (01) ==
LOC: NFLDREF 11-25 11:34
PROVIDERS: PCP Family Medicine; Referring Provider Family Medicine; Visit Provider Family Medicine
DX: E87.5 Hyperkalemia (principal)
CPT/HCPCS: 80048

== ENCOUNTER 2023-12-27 07:58 | Outpatient (CLI) | payer MEDICARE, BC, SELFPAY ==
--- OUTSIDE RECORDS SUMMARY | 2023-12-29 03:13 | XMS_ITS | Clinical Summary ---
Author Organization [facility] Address [place], [place] [address] Care Team Providers Care Door Cutter Name Role Phone Pcp, No Primary Care [...] with a meal. 0 12/01/2021 Active vit C,U-Qi-xloxm-lutein- zeaxan (PreserVision AREDS-2) capsule 2 capsules per day 0 12/01/2021 Active loratadine (CLARITIN) 10 mg tabletIndications:En vironmental allergies Take 1 Tablet (10 mg) by mouth once daily. As needed for allergies 30 Tablet 5 12/01/2021 Active Active Problems Problem Noted Date Diagnosed Date GERD (gastroesophageal reflux disease) 9 Recurrent UTI 05/24/2009 Immunizations Name Administration Dates Next Due COVID-19 vaccine (GeoOPBio NTech 30mcg/0.3mL) 12YO+ BIVALENT LIZBETH DAVALOS 04/13/2022 COVID-19 vaccine (Si TV NTNetrada 30mcg/0.3mL) 12YO+ CATHERINE-SUCROSE MD ANOOPV 10/22/2021 Influenza A (H1N1), Inactivated 05/22/2009 Influenza, [...] 50+ Completed 01/28/2019, 09/05/2018, 05/31/2013 Care Teams Door Cutter Relationship Specialty Start Date End Date Pcp, No . PCP - General 08/09/13
== END 2023-12-27 07:59 | disposition home or self-care (01) ==
LOC: NFLDREF 12-29 03:11
PROVIDERS: PCP Family Medicine; Referring Provider Family Medicine; Visit Provider Family Medicine
DX: E55.9 Vitamin D deficiency, unspecified (principal); I10 Essential (primary) hypertension; E78.5 Hyperlipidemia, unspecified; R53.83 Other fatigue; R79.89 Other specified abnormal findings of blood chemistry; E66.9 Obesity, unspecified
CPT/HCPCS: 80053; 80061; 82306; 84439; 84443

== ENCOUNTER 2024-01-20 13:49 | Outpatient (CLI) | payer MEDICARE, BC, SELFPAY ==
--- NOTE | 2024-01-20 14:00 | CRLHL7_ITS ---
For Patients: As a result of the Century Cures Act, medical imaging exams and procedure reports are released immediately into your electronic medical record. You may view this report before your referring provider. If you have questions, please contact your health care provider. DXA BONE MINERAL DENSITY STUDY Reason for exam: Screening. Current height (inches): 64 Weight (lbs.): 117 Menopause age: 52 Ethnicity: White 1. Have you had a previous hip or vertebral fracture? No. 2. Have you had any fractures during your adult life which did not result from significant trauma (e.g., auto accident)? No. 3. Did either of your parents have a hip fracture? No. 4. Do you smoke? No. 5. Have you ever taken Glucocorticoids? No. 6. Do you have rheumatoid arthritis? No. 7. Do you have secondary osteoporosis? No. 8. Do you drink 3 or more alcoholic drinks per day? No. 9. Are you being treated for osteoporosis? No. 10. Have you ever taken any of the following medications: Actonel, Evista, Fosamax, Miacalcin, Reclast, Boniva, Forteo, HRT (i.e., estrogen/hormone therapy), Protelos, Prolia, Vitamin D, Calcium, other ??? please specify. ANSWER: Yes; vitamin D. 11. Do you have any of the following medical conditions: Anorexia or bulimia, asthma or emphysema, end stage renal disease, hyperparathyroidism, any seizure disorders, cancer, inflammatory bowel diseases, hysterectomy, other ??? please specify. ANSWER: No. 12. What was your maximum height (inches)? 64. 13. Do you perform weightbearing exercise regularly? Not provided. 14. Do you regularly consume dairy products? Yes. 15. Do you drink caffeinated beverages? Yes. 16. At what age did your period start? 11. 17. Are you premenopausal? No. 18. How many full-term pregnancies have you had? 2. 19. Have you ever missed your period for more than 6 months in a row (not including or menopause)? No. TECHNIQUE: Bone mineral density study was performed using the [employer]. FINDINGS: The results of the study expressed as bone mineral density (BMD) are as follows: Lumbar Spine L1 to L4: BMD: 1.044 g/cm2. T-score: 0.0. Z-score: 2.8. Neck Left: BMD: 0.821 g/cm2. T-score: -0.3. Z-score: 2.3. Right: BMD: 0.839 g/cm2. T-score: -0.1. Z-score: 2.4. Total Left: BMD: 0.953 g/cm2. T-score: 0.1. Z-score: 2.4. Right: BMD: 0.935 g/cm2. T-score: -0.1. Z-score: 2.3. IMPRESSION: Normal bone density. COMPARISON: Compared with scan of 05/29/2019, the bone mineral density has decreased by 8.3% at the spine and decreased by 1.5% at the hip. Compared with scan of 06/26/2013, the bone mineral density has increased by 0.0% at the spine and decreased by 3.8% at the hip. *Comparison exams done prior to 12/2019 were performed on different unit, [employer]. PAT RODARTE M.D. Diagnostic Radiologist [email or web address] Transcribed: 2:[address]/Dictated by: Pat Rodarte MD @ 01/21/2024 8:17:00 AM (Electronically Signed)
== END 2024-01-20 13:50 | disposition home or self-care (01) ==
LOC: RAD 13:50
PROVIDERS: PCP Family Medicine; Visit Provider Family Medicine
DX: Z13.820 Encounter for screening for osteoporosis (principal); Z78.0 Asymptomatic menopausal state
CPT/HCPCS: 77080

== ENCOUNTER 2024-04-03 08:11 | Outpatient (CLI) | payer MEDICARE, BC, SELFPAY ==
--- OUTSIDE RECORDS SUMMARY | 2024-04-06 23:49 | XMS_ITS | Clinical Summary ---
Author Organization [facility] Address [place], [place] [address] Care Team Providers Care Veterinarian Epidemiologist Name Role Phone Pcp, No Primary Care [...] with a meal. 0 12/01/2021 Active vit C,A-Ik-ffbbg-lutein- zeaxan (PreserVision AREDS-2) capsule 2 capsules per day 0 12/01/2021 Active loratadine (CLARITIN) 10 mg tabletIndications:En vironmental allergies Take 1 Tablet (10 mg) by mouth once daily. As needed for allergies 30 Tablet 5 12/01/2021 Active Active Problems Problem Noted Date Diagnosed Date GERD (gastroesophageal reflux disease) 9 Recurrent UTI 05/24/2009 Immunizations Name Administration Dates Next Due COVID-19 vaccine ([employer] 30mcg/0.3mL) 12YO+ BIVALENT LIZBETH DAVALOS 04/13/2022 COVID-19 vaccine ([employer]ening [employer] 30mcg/0.3mL) 12YO+ CATHERINE-SUCROSE MD ANOOPV 10/22/2021 Influenza [...] Comments Depression screening for age 12+ 1951 RSV vaccine for adults or (1 - 1-dose 60+ series) 1999 DEXA/DXA scan for age 65+ 01/10/2004 Medicare Wellness for age 65+ 01/10/2004 BMI (ht and wt on same day) for age 18+ 12/01/2022 12/01/2021 COVID-19 vaccine series ( season) 2024 04/13/2022, 10/22/2021, 04/10/2021, Additional history exists Influenza for age 65+ 03/12/2024 04/13/2022 , 03/27/2021, 04/01/2020, Additional history exists Tetanus booster 09/05/2028 09/05/2018, 06/18/1999 Pneumococcal series for age 65+ Completed 5, 05/19/2006 Tdap Completed 09/05/2018 Zoster (shingles) series for age 50+ Completed 01/28/2019, 09/05/2018, 05/31/2013 Care Teams Veterinarian Epidemiologist Relationship Specialty Start Date End Date Pcp, No . PCP - General 08/09/13
--- OUTSIDE RECORDS SUMMARY | 2024-04-06 23:49 | XMS_ITS | Continuity of Care Document ---
Author Organization [facility] Address [address] [address] [place] [address] Phone Care Team Providers Care Medical Assistant Dermatology Name Role Phone Radha Kay MD Unavailable Unavailable Allergies, Adverse Reactions, Alerts Substance Reaction Status Criticality Sulfa (Sulfonamide Antibiotics) Hives Active No Information Medications Medication Instructions Dosage Effective Dates (start - stop) Status Comments Nasonex 50 mcg/Actuation [place] Use as directed - Active Prilosec unknown [...] Diagnoses Date Provider Providers Copied on Encounter [facility], [address] [address], [place], [place], [id number], [place] tel:[phone] [address] [facility] Eliza Garcia. [address], [address] [address], [place], [place], [id number], [place]. tel:[phone] Referring [place]: [place], [address] [place], [address]. tel:[phone] Offic Cons New/estab Mod- [facility], [address] [address], [place], [place], [id number], [place] tel:[phone] [facility] Eliza Garcia. [address], [place], [place], [id number], [place]. tel:[phone] Referring [place]: [place], [address] [place], [address]. tel:[phone] Family History Family Member Type Diagnosis Age At Onset No Information Payers Payer name Insurance type Covered alliance party ID Authoriza tion(s) Medicare NGS MB [id number] Social History Type Description Quantity Date Captured [...]
== END 2024-04-03 08:12 | disposition home or self-care (01) ==
LOC: NFLDREF 04-06 23:47
PROVIDERS: PCP Family Medicine; Referring Provider Family Medicine; Visit Provider Family Medicine
DX: I10 Essential (primary) hypertension (principal); R79.89 Other specified abnormal findings of blood chemistry; R94.6 Abnormal results of thyroid function studies
CPT/HCPCS: 80053; 84443

== ENCOUNTER 2024-04-26 11:43 | Emergency (ER) | payer MEDICARE, BC, SELFPAY ==
[2024-04-26 11:58] VITALS: BP 166/81; PULSE 70; RESP 18; TEMP 36.6; O2SAT 99; BMI 29.2
--- NOTE | 2024-04-26 12:20 | ED.GENADULT ---
HPI - General Adult General Chief complaint: Unspecified Complaint, Adult Stated complaint: blood pressure/eye concerns Time Seen by Provider: 04/26/24 11:45 History of Present Illness HPI narrative: Patient is a 84 year white female who is undergoing drops for follow-up on cataract surgery apparently there was some fluid around her macula. She is scheduled to see the open tenter operator about that. She is concerned that her blood pressures been up and down and she is concerned that that might cause trouble with her eye. She has had history of retinal vein occlusion as well. She is on antihypertensive medication. Sees Dr. Hernández in [place]. Sees Dr. Johnson for optometry. She today feels no symptoms other than she states occasionally at home she has been ?cold?. No rigors no chills no dysuria frequency chest pain breathing problem skin rashes neck stiffness headache or other abnormality concerned. She is mostly concerned about being on prednisone that she feels ?isn't working according to Dr. Adam and and ?. This is for her macular swelling. This is post cataract surgery. Related Data Home Medications ?Medication ?Instructions ?Recorded ?Confirmed aspirin 81 mg tablet,delayed 81 mg PO QDAY 12/04/22 04/05/24 release (Adult Aspirin Regimen) latanoprost 0.005 % eye drops 1 drp ophthalmic (eye) HS 12/04/22 04/05/24 ascorbate calcium (vitamin C) 500 500 mg PO QDAY 09/13/23 04/05/24 mg tablet folic acid 1 mg tablet 1 mg PO DAILY 09/13/23 04/05/24 vit C 250 mg-vit E 90 mg-zinc 40 1 tab PO BID 09/20/23 04/05/24 mg-copper 1 [id number]-[id number] capsule (PreserVision AREDS-2) erythromycin 5 mg/gram (0.5 %) eye 0.5 inch ophthalmic (eye) TID 03/02/24 04/26/24 ointment ketorolac 0.4 % eye drops drp ophthalmic (eye) 04/26/24 prednisolone acetate 1 % eye drp ophthalmic (eye) 04/26/24 drops,suspension Previous Rx's ?Medication ?Instructions ?Recorded atorvastatin 20 mg tablet 20 mg PO DAILY #90 tabs 12/29/23 cholecalciferol (vitamin D3) 25 25 mcg PO DAILY #90 tabs 12/29/23 mcg (1,000 unit) tablet losartan 50 mg tablet 50 mg PO BID #180 tabs 12/29/23 metoprolol succinate 25 mg 25 mg PO QDAY #90 tabs 12/29/23 tablet,extended release 24 hr Allergies Allergy/AdvReac Type Severity Reaction Status Date / Time amlodipine Allergy Severe rash and Verified 04/05/24 08:18 flushing Sulfa (Sulfonamide Allergy Verified 04/05/24 08:18 Antibiotics) Review of Systems Status of ROS: Reports: 6 or more systems reviewed and unremarkable except as noted in History and below 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 veins with pain (2018) ?I83.819 - Varicose veins of unspecified lower extremity with pain (ICD-10) Cardiac function test performed (07/2019) Obesity (BMI 30.0-34.9) ?E66.9 - Obesity, unspecified (ICD-10) Vitamin D deficiency ?E55.9 - Vitamin D deficiency, unspecified (ICD-10) Dyslipidemia ?E78.5 - Hyperlipidemia, unspecified (ICD-10) Rosacea (04/24/09) ?L71.9 - Rosacea, unspecified (ICD-10) History of migraine headaches ?Z86.69 - Personal history of other diseases of the nervous system and sense organs (ICD-10) Surgical History Hx of bilateral cataract extraction (02/2024) ?Z98.41 - Cataract extraction status, right eye (ICD-10) ?Z98.42 - Cataract extraction status, left eye (ICD-10) History of third molar tooth extraction (1959) ?K08.409 - Partial loss of teeth, unspecified cause, unspecified class (ICD-10) Family History Brother Hx of CABG, Onset Age: 65 Paternal Grandmother Diabetes Family/Other Diabetes Multiple sclerosis Mother Stroke Melanoma Brother Hx of CABG, Onset Age: 65 Social History Narrative: , retired teacher, 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 nonsmoker rarely consumes alcohol What is your current living situation?: I presently have a place to live Problems where you live: mold Problems where you live details: plants/paulson In the past 12 months, utilities in danger of being shut off: no In past 12 months, lack of transportation kept you from medical appts, meetings, work, or getting things needed for daily living: no In the past 12 mos, have been you worried that your food would run out before you had money to buy more?: never true In the past 12 mos, the food you bought just didn't last and you didn't have money to buy more?: never true Smoking Status: Never smoker Do you use any of these nicotine containing products: None Second hand tobacco smoke exposure: No How often do you have a drink containing alcohol: never AUDIT-C Alcohol total score: 0 Non-prescribed substance use: denies use How often does anyone, including family, friends and others, physically hurt you: never How often does anyone, including family, friends and others, insult or talk down to you: never How often does anyone, including family, friends and others, threaten you with harm: never How often does anyone, including family, friends and others, scream or curse at you: never Little interest or pleasure in doing things: not at all Feeling down, depressed, or hopeless: not at all service: No Exam Narrative: Exam Narrative: Objective: Patient's vital signs show blood pressure 166/81 afebrile O2 sat excellent at 99% pulse 70 and regular Alert orient x3 noncyanotic HEENT is unremarkable Neck is supple Neurologic grossly nonfocal, patient able to walk and ambulate. Const: Vital Signs, click to edit/add: Vital Signs - 24 hr 04/26/24 11:58 Temperature 97.8 F Pulse Rate [Pulse Oximeter] 70 Respiratory Rate 18 Blood Pressure [Ri ght Upper Arm] 166/81 H Pulse Oximetry 99 Oxygen Delivery Me thod Room Air Course Vital Signs Vital signs: Initial Vital Signs Temperature 97.8 F 04/26/24 11:58 Temperature Source Temporal Artery Scan 04/26/24 11:58 Pulse Rate 70 04/26/24 11:58 Respiratory Rate 18 04/26/24 11:58 Blood Pressure 166/81 H 04/26/24 11:58 Blood Pressure Mean 109 H 04/26/24 11:58 Pulse Oximetry 99 04/26/24 11:58 Oxygen Delivery Method Room Air 04/26/24 11:58 Vital Signs Temperature 97.8 F 04/26/24 11:58 Pulse Rate 70 04/26/24 11:58 Respiratory Rate 18 04/26/24 11:58 Blood Pressure 166/81 H 04/26/24 11:58 Pulse Oximetry 99 04/26/24 11:58 Oxygen Delivery Method Room Air 04/26/24 11:58 Temperature 97.8 F 04/26/24 11:58 Pulse Rate 70 04/26/24 11:58 Respiratory Rate 18 04/26/24 11:58 Blood Pressure 166/81 H 04/26/24 11:58 Pulse Oximetry 99 04/26/24 11:58 Oxygen Delivery Method Room Air 04/26/24 11:58 Medical Decision Making MDM Narrative Medical decision making narrative: This 84-year-old female who is concerned about her blood pressure causing trouble with her eye postoperatively. At this point I think she needs to continue to monitor blood pressure at home she has a monitor to do this we talked about how she can do this while sitting with her legs on cross for about 5-10 minutes and getting an accurate reading. I do not think she is in danger now with her blood pressure as it is. I think she needs more additional readings. She should discuss this with . Her work in the next few days. Would also recommend she follow up with the open tenter operator regarding her medications and they are working according to the coding machine operator then Ophthalmology follow-up would be appropriate. She was comfortable this and will follow up as directed, return as needed. Discharge Plan Discharge Clinical Impression: Hypertension Patient Disposition: Home, Self-Care Condition: Stable Additional Instructions: Follow-up with her open tenter operator for discussion of medications being used for your eye. Update Dr. Hernández in [facility] on your blood pressure in the next couple of days. Activity Level: No Restrictions Discharge Diet: Regular Prescriptions: No Action latanoprost 0.005 % drops 1 drp ophthalmic (eye) HS aspirin [Adult Aspirin Regimen] 81 mg tablet,delayed release (DR/EC) 81 mg PO QDAY losartan 50 mg tablet 50 mg PO BID Qty: 180 3RF Rx Instructions: 1 tab po bid for HTN metoprolol succinate 25 mg tablet extended release 24 hr 25 mg PO QDAY Qty: 90 3RF atorvastatin 20 mg tablet 20 mg PO DAILY Qty: 90 3RF cholecalciferol (vitamin D3) 25 mcg (1,000 unit) tablet 25 mcg PO DAILY Qty: 90 3RF ascorbate calcium (vitamin C) 500 mg tablet 500 mg PO QDAY folic acid 1 mg tablet 1 mg PO DAILY PreserVision AREDS-2 250-90-40-1 mg capsule 1 tab PO BID erythromycin 5 mg/gram (0.5 %) ointment 0.5 inch ophthalmic (eye) TID prednisolone acetate 1 % drops,suspension ophthalmic (eye) ketorolac 0.4 % drops ophthalmic (eye) Follow Up/Referrals: Kelly Pena MD [Primary Care Provider] - Stand Alone Forms: [employer] Info Instructions
--- OUTSIDE RECORDS SUMMARY | 2024-04-26 12:37 | XMS_ITS | Clinical Summary ---
Author Organization [facility] Address [place], [place] [address] Care Team Providers Care Rail Specialist Name Role Phone Pcp, No Primary Care [...] with a meal. 0 12/01/2021 Active vit C,W-Tm-fikym-lutein- zeaxan (PreserVision AREDS-2) capsule 2 capsules per day 0 12/01/2021 Active loratadine (CLARITIN) 10 mg tabletIndications:En vironmental allergies Take 1 Tablet (10 mg) by mouth once daily. As needed for allergies 30 Tablet 5 12/01/2021 Active Active Problems Problem Noted Date Diagnosed Date GERD (gastroesophageal reflux disease) 9 Recurrent UTI 05/24/2009 Immunizations Name Administration Dates Next Due COVID-19 vaccine (Recurrent [employer] 30mcg/0.3mL) 12YO+ BIVALENT LIZBETH DAVALOS 04/13/2022 COVID-19 vaccine ([employer] 30mcg/0.3mL) 12YO+ CATHERINE-SUCROSE MD ANOOPV 10/22/2021 Influenza [...] 01/10/2004 Medicare Wellness for age 65+ 01/10/2004 RSV vaccine for adults or (1 - 1-dose 75+ series) 2014 BMI (ht and wt on same day) [...] 50+ Completed 01/28/2019, 09/05/2018, 05/31/2013 Care Teams Rail Specialist Relationship Specialty Start Date End Date Pcp, No . PCP - General 08/09/13
== END 2024-04-26 12:46 | disposition home or self-care (01) ==
LOC: ED 12:35
PROVIDERS: Emergency Provider Family Medicine; PCP Family Medicine
DX: I10 Essential (primary) hypertension (principal)
CPT/HCPCS: 99283

== ENCOUNTER 2024-06-26 08:45 | Outpatient (CLI) | payer MEDICARE, BC, SELFPAY | END 2024-06-26 08:46 | disposition home or self-care (01) | LOC: NFLDREF 06-27 04:21 | PROVIDERS: PCP Family Medicine; Referring Provider Family Medicine; Visit Provider Family Medicine | DX: E55.9 Vitamin D deficiency, unspecified (principal); I10 Essential (primary) hypertension; E78.5 Hyperlipidemia, unspecified; M81.0 Age-related osteoporosis without current pathological fracture | CPT/HCPCS: 80053; 80061; 82306 ==

== ENCOUNTER 2024-06-28 10:22 | Outpatient (CLI) | payer MEDICARE, BC, SELFPAY ==
--- NOTE | 2024-06-28 10:15 | CRLHL7_ITS ---
For Patients: As a result of the Century Cures Act, medical imaging exams and procedure reports are released immediately into your electronic medical record. You may view this report before your referring provider. If you have questions, please contact your health care provider. BILATERAL SCREENING MAMMOGRAM WITH COMPUTER-AIDED DETECTION AND TOMOSYNTHESIS TECHNIQUE: CC and MLO views were obtained. These mammographic images have been obtained using full-field digital technique. These mammographic images were interpreted with the benefit of computer-aided detection. Breast Tomosynthesis was used in this interpretation. COMPARISON FILM: 02/17/23, 10/07/21, 09/17/20. FINDINGS: The breasts are heterogeneously dense, which may obscure small masses IMPRESSION: There is no radiographic evidence for malignancy. ASSESSMENT: BI-RADS Category 1: Negative RECOMMENDATION: Routine screening mammogram in 1 year. A lay language report of this examination will be provided to the patient. Neel Rizvi M.D. Diagnostic Radiologist [email or web address] Transcribed: 4:26 p.erica hale/Dictated by: Neel Rizvi MD @ 06/28/2024 11:40:00 AM (Electronically Signed)
== END 2024-06-28 10:23 | disposition home or self-care (01) ==
LOC: MAMMO 10:23
PROVIDERS: PCP Family Medicine; Visit Provider Family Medicine
DX: Z12.31 Encounter for screening mammogram for malignant neoplasm of breast (principal); R92.333 Mammographic heterogeneous density, bilateral breasts
CPT/HCPCS: 77063; 77067

== ENCOUNTER 2024-07-31 11:10 | Outpatient (CLI) | payer MEDICARE, BC, SELFPAY ==
--- NOTE | 2024-07-31 12:30 | P.ANES_ITS ---
Anesthesia Charges Start Date/Time Anesthesia Start Date: 07/31/24 Anesthesia Start Time: 12:00 Stop Date/Time Anesthesia Stop Date: 07/31/24 Anesthesia Stop Time: 12:28 Coding CPT Codes CPT Codes: ANES LWR INTST SCR COLSC - 59013 ([id number]) P2 - PATIENT W/MILD SYST DISEASE, QZ - RECREATION COUNSELOR SVC W/O CRANE RIGGER BY
--- NOTE | 2024-07-31 12:30 | W.ANESCHARGE ---
Anesthesia Charges Start Date/Time Anesthesia Start Date: 07/31/24 Anesthesia Start Time: 12:00 Stop Date/Time Anesthesia Stop Date: 07/31/24 Anesthesia Stop Time: 12:28 Coding CPT Codes CPT Codes: ANES LWR INTST SCR COLSC - 68001 ([id number]) P2 - PATIENT W/MILD SYST DISEASE, QZ - SHEET TAKER SVC W/O TRACK WORKER BY
== END 2024-07-31 11:11 | disposition home or self-care (01) ==
LOC: OP CLINIC 11:13
PROVIDERS: PCP Family Medicine; Visit Provider Internal Medicine
DX: Z12.11 Encounter for screening for malignant neoplasm of colon (principal); K64.8 Other hemorrhoids; K57.30 Diverticulosis of large intestine without perforation or abscess without bleeding; Z86.0100 Personal history of colon polyps, unspecified
CPT/HCPCS: 00812; 45378; J2704

== ENCOUNTER 2024-12-25 08:30 | Outpatient (CLI) | payer MEDICARE, BC, SELFPAY | END 2024-12-25 08:31 | disposition home or self-care (01) | LOC: NFLDREF 12-29 01:41 | PROVIDERS: PCP Family Medicine; Referring Provider Family Medicine; Visit Provider Family Medicine | DX: I10 Essential (primary) hypertension (principal) | CPT/HCPCS: 80053 ==

== ENCOUNTER 2025-02-15 16:02 | Outpatient (CLI) | payer MEDICARE, BC, SELFPAY | END 2025-02-15 16:03 | disposition home or self-care (01) | PROVIDERS: PCP Family Medicine; Visit Provider Family Medicine | DX: R35.0 Frequency of micturition (principal); R39.9 Unspecified symptoms and signs involving the genitourinary system | CPT/HCPCS: 87086 ==

== ENCOUNTER 2025-02-15 16:17 | Outpatient (CLI) | payer MEDICARE, BC, SELFPAY ==
--- NOTE | 2025-02-15 15:45 | CRLHL7_ITS ---
For Patients: As a result of the Century Cures Act, medical imaging exams and procedure reports are released immediately into your electronic medical record. You may view this report before your referring provider. If you have questions, please contact your health care provider. INDICATION: Leg pain and swelling. TECHNIQUE: Ultrasound venous duplex lower left extremity. Compression venous exam was performed using cloud-scale, color Doppler, and spectral Doppler analysis. COMPARISON: None. FINDINGS: Deep veins: DVT in 1 of 2 posterior tibial veins. Sonographic imaging otherwise demonstrates the left common femoral, deep femoral, superficial femoral, popliteal, and the contralateral right common femoral veins to be fully compressible with normal color Doppler blood flow. Superficial veins: Greater saphenous vein is fully compressible. No popliteal cyst. IMPRESSION: DVT in 1 of 2 posterior tibial veins. Dictated by Neel Lugo MD @ 02/15/2025 5:54:21 PM (Electronically Signed)
== END 2025-02-15 16:18 | disposition home or self-care (01) ==
LOC: US 16:18
PROVIDERS: PCP Family Medicine; Visit Provider Family Medicine
DX: M79.89 Other specified soft tissue disorders (principal); I82.442 Acute embolism and thrombosis of left tibial vein; M79.605 Pain in left leg; R35.0 Frequency of micturition; R39.9 Unspecified symptoms and signs involving the genitourinary system
CPT/HCPCS: 87086; 93971; 99283; A9270

== ENCOUNTER 2025-02-15 16:53 | Emergency (ER) | payer MEDICARE, BC, SELFPAY ==
[2025-02-15 17:18] VITALS: BP 170/84; PULSE 77; RESP 18; TEMP 36.3; O2SAT 100; BMI 30.3
--- NOTE | 2025-02-15 17:46 | ED.LOWEXIN ---
HPI - Extremity Injury (Lower) General Date Seen: 02/15/25 Chief Complaint: Extremity Pain/Injury, Lower Stated Complaint: blood clot L left Time Seen by Provider: 02/15/25 17:31 Source: patient Mode of arrival: ambulatory Limitations: no limitations History of Present Illness HPI Narrative: Patient is an 85-year-old female presenting for a blood clot in her left leg. She states in December she was with family when she tripped and fell rolling her left ankle. She continued to have left ankle swelling and saw her primary care provider today. They did imaging and ordered an ultrasound which was done here in [place]. It return positive. Due that patient is sent to the emergency department to be started on medications. Patient denies any pain. Denies any new or worsening chest pain or shortness of breath. Denies fevers, chills, weakness, numbness, headache, is dizziness. No other concerns noted. No history of blood clots. Only blood thinner is it daily baby aspirin. Related Data Home Medications ?Medication ?Instructions ?Recorded ?Confirmed aspirin 81 mg tablet,delayed 81 mg PO QDAY 12/04/22 02/15/25 release (Adult Aspirin Regimen) latanoprost 0.005 % eye drops 1 drp ophthalmic (eye) HS 12/04/22 02/15/25 ascorbate calcium (vitamin C) 500 500 mg PO QDAY 09/13/23 02/15/25 mg tablet folic acid 1 mg tablet 1 mg PO DAILY 09/13/23 02/15/25 vit C 250 mg-vit E 90 mg-zinc 40 1 tab PO BID 09/20/23 02/15/25 mg-copper 1 [id number] capsule (PreserVision AREDS-2) ketorolac 0.4 % eye drops drp ophthalmic (eye) 04/26/24 02/15/25 prednisolone acetate 1 % eye drp ophthalmic (eye) 04/26/24 02/15/25 drops,suspension Previous Rx's ?Medication ?Instructions ?Recorded cholecalciferol (vitamin D3) 25 25 mcg PO DAILY #90 tabs 12/29/23 mcg (1,000 unit) tablet atorvastatin 20 mg tablet 20 mg PO DAILY #90 tabs 06/28/24 losartan 50 mg tablet 50 mg PO BID #180 tabs 06/28/24 metoprolol succinate 50 mg 50 mg PO QDAY #90 tabs 12/27/24 tablet,extended release 24 hr apixaban 5 mg (74 tabs) tablets in 5 mg PO BID #74 ea 02/15/25 a dose pack (Eliquis DVT-PE Treat 30D Start) Allergies Allergy/AdvReac Type Severity Reaction Status Date / Time amlodipine Allergy Severe rash and Verified 02/15/25 17:17 flushing Sulfa (Sulfonamide Allergy Verified 02/15/25 17:17 Antibiotics) Review of Systems Narrative: Pertinent systems reviewed and were negative unless stated in HPI PFSH PFS Medical History Grief reaction ?F43.21 - Adjustment disorder with depressed mood (ICD-10) Anxiety and depression (04/2023) ?F41.9 - Anxiety disorder, unspecified (ICD-10) ?F32.A - Depression, unspecified (ICD-10) History of bone density study (2018) ?Z92.89 - Personal history of other medical treatment (ICD-10) 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, unspecified (ICD-10) Varicose veins with pain (2018) ?I83.819 - Varicose veins of unspecified lower extremity with pain (ICD-10) Cardiac function test performed (07/2019) Obesity (BMI 30.0-34.9) ?E66.9 - Obesity, unspecified (ICD-10) Vitamin D deficiency ?E55.9 - Vitamin D deficiency, unspecified (ICD-10) Dyslipidemia ?E78.5 - Hyperlipidemia, unspecified (ICD-10) Rosacea (04/24/09) ?L71.9 - Rosacea, unspecified (ICD-10) History of migraine headaches ?Z86.69 - Personal history of other diseases of the nervous system and sense organs (ICD-10) Surgical History Hx of bilateral cataract extraction (02/2024) ?Z98.41 - Cataract extraction status, right eye (ICD-10) ?Z98.42 - Cataract extraction status, left eye (ICD-10) History of third molar tooth extraction (1959) ?K08.409 - Partial loss of teeth, unspecified cause, unspecified class (ICD-10) Family History Brother Hx of CABG, Onset Age: 65 Paternal Grandmother Diabetes Family/Other Diabetes Multiple sclerosis Mother Stroke Melanoma Brother Hx of CABG, Onset Age: 65 Social History Narrative: , retired teacher, 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 nonsmoker rarely consumes alcohol What is your current living situation?: I presently have a place to live Problems where you live: mold Problems where you live details: plants/paulson In the past 12 months, utilities in danger of being shut off: no In past 12 months, lack of transportation kept you from medical appts, meetings, work, or getting things needed for daily living: no In the past 12 mos, have been you worried that your food would run out before you had money to buy more?: never true In the past 12 mos, the food you bought just didn't last and you didn't have money to buy more?: never true Smoking Status: Never smoker Do you use any of these nicotine containing products: None Second hand tobacco smoke exposure: No How often do you have a drink containing alcohol: never AUDIT-C Alcohol total score: 0 Non-prescribed substance use: denies use How often does anyone, including family, friends and others, physically hurt you: never How often does anyone, including family, friends and others, insult or talk down to you: never How often does anyone, including family, friends and others, threaten you with harm: never How often does anyone, including family, friends and others, scream or curse at you: never service: No Health Related Social Needs: Inadequate housing (Z59.1) Exam Narrative: Exam Narrative: Const: Well-nourished, Well-developed, in no distress Eyes: PERRL, no conjunctival injection, and symmetrical lids HENT: Atraumatic external nose and ears. Moist mucous membranes. Neck: Symmetric, trachea midline, No thyromegaly. CVS: RRR, No murmurs or gallops. Peripheral pulses 2+ and equal in all extremities RESP: Unlabored respiratory effort. Clear to auscultation bilaterally. GI: Nontender/Nondistended, No rebound or guarding. MSK:Extremities w/o deformity, Normal Active ROM, swollen left ankle is slightly swollen left leg compared to the right Skin: Warm, Dry. No rashes or lesions. Neuro: Normal Muscle tone, No focal neurological deficits. Psych: Awake, Alert, & Oriented x3. Appropriate mood and affect. Const: Vital Signs, click to edit/add: Vital Signs - 24 hr 02/15/25 17:18 Temperature 97.4 F L Pulse Rate [Pulse Oximeter] 77 Respiratory Rate 18 Blood Pressure [Ri ght Upper Arm] 170/84 H Pulse Oximetry 100 Oxygen Delivery Me thod Room Air Course Vital Signs Vital signs: Initial Vital Signs Temperature 97.4 F L 02/15/25 17:18 Temperature Source Temporal Artery Scan 02/15/25 17:18 Pulse Rate 77 02/15/25 17:18 Respiratory Rate 18 02/15/25 17:18 Blood Pressure 170/84 H 02/15/25 17:18 Blood Pressure Mean 112 H 02/15/25 17:18 Blood Pressure Position Sitting 02/15/25 17:18 Pulse Oximetry 100 02/15/25 17:18 Oxygen Delivery Method Room Air 02/15/25 17:18 Vital Signs Temperature 97.4 F L 02/15/25 17:18 Pulse Rate 77 02/15/25 17:18 Respiratory Rate 18 02/15/25 17:18 Blood Pressure 170/84 H 02/15/25 17:18 Pulse Oximetry 100 02/15/25 17:18 Oxygen Delivery Method Room Air 02/15/25 17:18 Temperature 97.4 F L 02/15/25 17:18 Pulse Rate 77 02/15/25 17:18 Respiratory Rate 18 02/15/25 17:18 Blood Pressure 170/84 H 02/15/25 17:18 Pulse Oximetry 100 02/15/25 17:18 Oxygen Delivery Method Room Air 02/15/25 17:18 MDM - Extremity Injury (Lower) MDM Narrative Medical decision making narrative: Patient is a 5-year-old female presenting to emergency department for a blood clot. She has done no other blood thinners. No signs of a PE at this time. Overall she is doing well. Vital signs are stable. I do believe she is safe for discharge. Will start her on Eliquis. Discharge Plan Discharge Clinical Impression: Left leg DVT Patient Disposition: Home, Self-Care Condition: Stable Instructions: Deep Vein Thrombosis (ED) Additional Instructions: Take the blood thinners as prescribed. Have close follow-up with your primary care provider. Return to emergency department for new or worsening symptoms. Be aware that the blood thinner will increase your risk of bleeding. Prescriptions: New Reji DVT-PE Treat 30D Start 5 mg (74 tabs) tablets,dose pack 5 mg PO BID Qty: 74 0RF Rx Instructions: take 10 mg twice daily for for 7 days then 5 mg twice daily the her after that No Action latanoprost 0.005 % drops 1 drp ophthalmic (eye) HS aspirin [Adult Aspirin Regimen] 81 mg tablet,delayed release (DR/EC) 81 mg PO QDAY atorvastatin 20 mg tablet 20 mg PO DAILY Qty: 90 3RF losartan 50 mg tablet 50 mg PO BID Qty: 180 3RF Rx Instructions: 1 tab po bid for HTN cholecalciferol (vitamin D3) 25 mcg (1,000 unit) tablet 25 mcg PO DAILY Qty: 90 3RF ascorbate calcium (vitamin C) 500 mg tablet 500 mg PO QDAY folic acid 1 mg tablet 1 mg PO DAILY PreserVision AREDS-2 250-90-40-1 mg capsule 1 tab PO BID metoprolol succinate 50 mg tablet extended release 24 hr 50 mg PO QDAY Qty: 90 3RF prednisolone acetate 1 % drops,suspension ophthalmic (eye) ketorolac 0.4 % drops ophthalmic (eye) Follow Up/Referrals: Kelly Pena MD [Primary Care Provider, Family Practice] Stand Alone Forms: [facility] Info Instructions
--- NOTE | 2025-02-15 18:18 | ED.NURSE ---
took call from pt. pharmacy in regards to pt. Eliquis RX. confirmed dosing with MD and updates pharmacist.
[2025-02-15] MEDS: APIXABAN 5 MG TABLET 10 MG PO (19:27)
== END 2025-02-15 18:00 | disposition home or self-care (01) ==
PROVIDERS: Emergency Provider Student in an Organized Health Care Education/Training Program; PCP Family Medicine
DX: I82.502 Chronic embolism and thrombosis of unspecified deep veins of left lower extremity (principal)
CPT/HCPCS: 99282; 99283; A9270

== ENCOUNTER 2025-06-26 08:11 | Outpatient (CLI) | payer MEDICARE, BC, SELFPAY | END 2025-06-26 08:12 | disposition home or self-care (01) | LOC: NFLDREF 07-01 17:06 | PROVIDERS: PCP Family Medicine; Referring Provider Family Medicine; Visit Provider Family Medicine | DX: R68.89 Other general symptoms and signs (principal); R53.83 Other fatigue | CPT/HCPCS: 80053; 80061; 82306; 84443 ==